=== PATIENT | male | born 1975 | race Caucasian/White ===

== ENCOUNTER 2016-10-30 19:00 | Emergency (ER) | payer OTHER ==
[2016-10-30] MEDS ORDERED: DILAUDID IV ONE ×2 (19:18→20:43)
[2016-10-30] MEDS ORDERED: NS 1,000 ML IV ONE (19:18)
[2016-10-30] MEDS ORDERED: ZOFRAN IV ONE (19:18)
--- NOTE | 2016-10-30 19:21 | PROVIDER DOCUMENTATION ---
HPI-Abdominal Pain/GI Problem - General Chief Complaint: Abdominal Pain Stated Complaint: knot on abd Time Seen by Provider: 10/30/16 19:11 Source: patient Allergies/Adverse Reactions: Patient Allergies Allergy/AdvReac Type Severity Reaction Status Date / Time No Known Allergies Allergy Verified 10/30/16 19:42 Home Medications: Alprazolam [Xanax] 0.5 mg PO BID 10/14/13 LISINOpril [Prinivil] 20 mg PO DAILY 10/14/13 Metformin [Glucophage] 1,000 mg PO BID CC 06/01/15 - History of Present Illness-ABD Nature of Presenting Problems: 41 year old M presents to the ED with a cc of LLQ ABD pain with an onset of 2 weeks ago. PT states that he also has nausea and vomiting but is unsure if it is associated with chemo. PT states that he has lymphoma. Abdominal Pain Onset Location: reports: LLQ Pain Radiation: reports: no radiation Quality of Pain: reports: aching Severity in ED: reports: mild Onset/Duration: reports: other (2 weeks) Timing: reports: still present Activities at Onset: reports: none Modifying Factors: improves with: nothing Associated Symptoms: reports: nausea, vomiting Bruising or Bleeding Gums?: No Similar Symptoms Previously?: No Recently seen or treated by another doctor?: No Review of Systems - Adult - REVIEW OF SYSTEMS - ADULT Constitutional: denies: chills, fever Eyes: reports: no symptoms reported Ears, Nose, Mouth & Throat: reports: no symptoms reported Cardiovascular: denies: chest pain, palpitations Respiratory: denies: cough, shortness of breath Gastrointestinal: reports: abdominal pain, nausea, vomiting Genitourinary: denies: dysuria, hematuria Musculoskeletal: denies: bone pain, muscle aches, muscle weakness Integumentary: reports: no symptoms reported Neurological: reports: no symptoms reported Psychiatric: reports: no symptoms reported Endocrine: reports: no symptoms reported Hematologic/Lymphatic: reports: no symptoms reported Allergic/Immunologic: reports: no symptoms reported All Other Systems: Reviewed and Negative Past History - Adult - PAST MEDICAL HISTORY-ADULT Review of Records: reports: Nursing Assessment Review, Medications Reviewed Major Childhood Illnesses: reports: denies history Cardiovascular: reports: HTN Musculoskeletal: reports: chronic pain Psychiatric: reports: depression Endocrine/Immune: reports: Diabetes, Lymphoma - PRIOR SURGERIES/PROCEDURES Surgical/Procedure History: reports: reviewed, not pertinent - PRIOR HOSPITALIZATIONS Prior Hospitalizations: reports: none - IMMUNIZATION STATUS Childhood Immunizations: See Nurse Assessment Flu Vaccine: See Nurse Assessment - FAMILY HISTORY Family History: reviewed, not pertinent - SOCIAL HISTORY Smoking: cigarettes, less than 1 pack/day Provider spent 3-5 mins advising pt. on dangers of tobacco.: Discussed manners to quit use, and f/u contacts for add'l counseling. Substance Use: marijuana Alcohol Use Frequency: occasionally Physical Exam-General - PHYSICAL EXAM-ADULT Initial Vital Signs Reviewed: Yes - CONSTITUTIONAL General Appearance: appears well, alert, no apparent distress - RESPIRATORY Respiratory: chest non-tender, lungs clear, normal breath sounds - CARDIOVASCULAR Cardiovascular: normal peripheral pulses, regular rate, rhythm, no edema - GASTROINTESTINAL (ABDOMEN) Abdominal Exam: normal bowel sounds, soft, tenderness (LLQ), mass (4x4 mass to LLQ) - SKIN Integumentary: normal color, normal turgor, warm/dry - PSYCHIATRIC Psych/Mental Status: normal mood/affect, normal thought content, normal thought process, oriented x 3 Progress - PLAN OF CARE/RESULTS Progress/Plan/Lab Results: plan of care: imaging, labs, fluids, medications, I&D Orders Category Date Time Status CT ABD/PELVIS W/ IV CONT ONLY [CT] Stat Exams 10/30/16 19:17 Taken CBC WITH ELECTRONIC DIFF [HEME] Stat Lab 10/30/16 19:05 Completed CMP [COMPREHENSIVE METABOLIC PANEL] [CHEM] Stat Lab 10/30/16 19:05 Completed WOUND CULTURE INC GRAM STAIN [RM] Routine Lab 10/30/16 21:13 Received 0.9% Sodium Chloride Inj [Ns] 1,000 ml Med 10/30/16 19:18 Discontinued IV 999 mls/hr Hydromorphone [Dilaudid] Med 10/30/16 19:18 Discontinued 1 mg IV NOW ONE Hydromorphone [Dilaudid] Med 10/30/16 20:43 Discontinued 1 mg IV NOW ONE Lidocaine 1%/Epi 1:100,000 [Xylocaine 1%/Epi 1:100,000] Med 10/30/16 20:49 Discontinued 20 ml INJ NOW ONE Ondansetron [Zofran] Med 10/30/16 19:18 Discontinued 8 mg IV NOW ONE Laboratory Tests 10/30/16 10/30/16 19:05 19:05 WBC 10.22 RBC 4.89 Hgb 15.1 Hct 40.3 L MCV 82.4 MCH 30.9 MCHC 37.5 H RDW Std Deviation 12.9 Plt Count 256 MPV 10.1 Immature Gran % (Auto) 0.9 H Neut % (Auto) 74.7 Lymph % (Auto) 10.5 L [place] % (Auto) 11.2 H Eos % (Auto) 1.8 Baso % (Auto) 0.9 H Immature Gran # (Auto) 0.09 H Neut # (Auto) 7.65 H Lymph # (Auto) 1.07 L [place] # (Auto) 1.14 H Eos # (Auto) 0.18 Baso # (Auto) 0.09 Sodium 133 L Potassium 3.7 Chloride 93 L Carbon Dioxide 24 L Anion Gap 16 BUN 24 H Creatinine 0.8 Estimated GFR/1.73 m2 > 60 BUN/Creatinine Ratio 30 Glucose 255 H Calculated Osmolality 279 Calcium 9.6 Total Bilirubin 0.41 AST 38 H ALT 136 H Alkaline Phosphatase 202 H Total Protein 6.7 Albumin 3.8 Globulin 2.9 Albumin/Globulin Ratio 1.3 Vital Signs - 24 hr 10/30/16 19:19 Pulse Rate 121 H Respiratory 20 Rate Blood Pressure 141/109 O2 Sat by Pulse 95 Oximetry Pt given results and will be d/c home w/ rx to follow up with PCP. Pt verbally understood instructions. PT remained clinically stable throughout the course of the ED stay and will return if symptoms worsen. - CT/MRI 1 CT Study: Abdomen, Pelvis Impression: Abnormal CT Results: abscess with overlying cellulitis in LLQ - CONSULTS/PCP/HOSPITALIST Notification #1 *Consult/PCP/Hospitalist*: Dr. Vasquez Time Discussed: 22:03 Procedures - INCISION & DRAINAGE Site: LLQ ABD Abscess Type: Subcutaneous Anesthetic: 1%, Lidocaine w/ Epinephrine Volume of Anesthetic (ml's): 8 Blade Size: 11 Packing placed?: Yes Sterile Dressing Applied?: Yes Drainage: Purulent, Small Amount Procedure Comment: aspirated with blood and pus mixed and then incision made Departure - Departure Time of Disposition Order: 21:21 DIAGNOSIS: Abdominal wall abscess Disposition: HOME 01 Certified Medical Emergency: Emergent Condition: Good Additional Instructions: Follow up with primary care doctor. Return to ED for any new or worsening symptoms. Establish care with a primary physician by calling the physician referral line below. ED Follow Up Instructions: You have been treated by a care provider in the Emergency Department. These instructions are being provided to you so you can have an understanding of how to care for yourself upon discharge. Upon discharge from the Emergency Department, you are responsible for making arrangements for follow-up care by a physician of your choice. Take all prescribed medications as directed. Return to the Emergency Department immediately for any new or worsening symptoms. You may call the Physician Referral phone number at [phone] to obtain a list of Physicians who are taking new patients. Prescriptions: Sulfamethoxazole/Tmp D.s. [Septra Ds] 1 each PO BID #14 tablet Referrals: None,PCP [Primary Care Provider] - Instructions: Abscess, [id number] Attestation - Scribe Verification/Attestation Scribe:: Tisha Szymanski Acting as Scribe for:: Frankie Graham Scribe documention review:: This chart was documented by a scribe and accurately reflects the service the provider performed and the decisions made by the provider. Physician Attestation - Physician Attestation I, the provider, attest to the following statement:: Frankie Graham Physician documentation Attestation:: This documentation recorded by the scribe accurately reflects the service I personally performed and the decisions made by me.
[2016-10-30 19:30] LABS: BASO% 0.9 % (0.0-0.8); EOS# 0.18 X1000 (0.0-0.7); EOS% 1.8 % (0.0-10.0); HEMATOCRIT 40.3 % (42.0-52.0); HEMOGLOBIN 15.1 g/dL (14.0-18.0); IMM GRAN# 0.09 X1000 (0.0-0.04); IMM GRAN% 0.9 % (0.0-0.5); LYMPH# 1.07 X1000 (1.2-3.4); LYMPH% 10.5 % (20.5-51.1); MANUAL DIFF NEEDED? NO; MCH 30.9 PG (27-31); MCHC 37.5 g/dL (33-37); MCV 82.4 FL (81-99); MONO# 1.14 X1000 (0.11-0.59); MONO% 11.2 % (1.7-9.3); MPV 10.1 FL (7.4-10.4); NEUT% 74.7 % (42.2-75.2); PLT 256 X1000 (130-400); RBC 4.89 XMIL (4.7-6.1)
[2016-10-30 20:09] LABS: AGAP 16; ALBUMIN 3.8 g/dL (3.5-5.0); ALKALINE PHOSPHATASE 202 U/L (32-122); BUN 24 mg/dL (8-22); CALCIUM 9.6 mg/dL (8.8-10.2); CHLORIDE 93 mmol/L (98-107); COSMO 279; GOT 38 U/L (10-34); GPT 136 U/L (10-44); POTASSIUM 3.7 mmol/L (3.5-5.1); SODIUM 133 mmol/L (136-145); TCO2 24 mmol/L (25-35); TOTAL BILIRUBIN 0.41 mg/dL (0.20-1.00); TOTAL PROTEIN 6.7 g/dL (6.3-8.3)
[2016-10-30] MEDS ORDERED: XYLOCAINE 1%/EPI 1:100,000 INJ ONE (20:49)
[2016-10-30 22:29] VITALS: BP 155/87
--- NOTE | 2016-10-31 08:51 | Diag Imaging Result Document ---
PROCEDURE NAME: CT ABD/PELVIS W/ IV CONT ONLY - 10/30/2016 CT ABDOMEN AND PELVIS WITH INTRAVENOUS CONTRAST: COMPARISON: 05/31/2016, 05/12/2016. FINDINGS: There has been development of a small, oval, rim-enhancing, slightly complicated fluid collection with overlying skin inflammation at the left lower quadrant anterior abdominal wall. This measures about 4.4 x 1.7 cm. There is mesenteric lymphadenopathy and some mesenteric edema as well as retroperitoneal adenopathy. This has slightly improved since prior. The lung bases are clear and the heart size is normal. The liver, gallbladder, spleen, pancreas, adrenals, and kidneys are normal. There is stable diverticulosis of the descending and sigmoid colon. Bony structures are intact. IMPRESSION: 1. Small fluid collection with skin inflammation at the anterior left lower quadrant body wall compatible with a subcutaneous abscess. 2. Improvement in the abdominal lymphadenopathy. 3. Stable diverticulosis coli.
== END 2016-10-30 22:31 | disposition home or self-care (01) ==
LOC: EDBD → ED 19:00
DX: L02.211 Cutaneous abscess of abdominal wall (principal); R10.32 Left lower quadrant pain; R11.2 Nausea with vomiting, unspecified; R10.814 Left lower quadrant abdominal tenderness; R19.04 Left lower quadrant abdominal swelling, mass and lump; C85.90 Non-Hodgkin lymphoma, unspecified, unspecified site; I10 Essential (primary) hypertension; G89.29 Other chronic pain; Z79.899 Other long term (current) drug therapy; E11.9 Type 2 diabetes mellitus without complications; F17.210 Nicotine dependence, cigarettes, uncomplicated; Z79.4 Long term (current) use of insulin; Z71.6 Tobacco abuse counseling
CPT/HCPCS: 74177; 80053; 85025; 87070; 96374; 96376; J1170; J2405; J7030; Q9966

== ENCOUNTER 2017-01-12 02:12 | Observation (INO) | payer OTHER ==
[2017-01-12] MEDS ORDERED: NS 1,000 ML IV ONE (02:54)
[2017-01-12] MEDS ORDERED: SODIUM CHLORIDE 0.9% INJ ONE ×2 (02:54→03:25)
[2017-01-12] MEDS ORDERED: PROTONIX IV ONE (02:54)
[2017-01-12] MEDS ORDERED: ZOFRAN IV ONE (02:54)
[2017-01-12] MEDS ORDERED: HUMULIN R IV ONE ×2 (02:56→06:02)
--- NOTE | 2017-01-12 03:03 | PROVIDER DOCUMENTATION ---
HPI-Abdominal Pain/GI Problem - General Source: patient - History of Present Illness-ABD Nature of Presenting Problems: Pt is a 41 yom who presents to ER with CC of N/V since . Pt reports that he has vomited x3 within the last 6 hours, but no diarrhea. Pt reports that he has not had a bm today, but they have been normal all week. Pt also complains of loss of appetite, has hx of diabetes. 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 Pt reports that his B/S usually runs this high "but this aint never happened before." Abdominal Pain Onset Location: reports: LLQ, epigastric Pain Radiation: reports: no radiation Quality of Pain: reports: aching, cramping Severity in ED: reports: moderate Onset/Duration: reports: 4 days ago Timing: reports: still present Associated Symptoms: reports: heartburn, loss of appetite, nausea, vomiting. denies: anxiety, arm pain, back/neck pain, chest pain, constipation, cough, diaphoresis, diarrhea, dizziness, EENT symptoms, fatigue, fever/chills, genitourinary problems, headaches, muscle aches, sinus congestion/drainage, shortness of breath, pain with inspiration, swelling/mass in abdomen, syncope, weakness, trouble walking Last BM: 24 hours ago Dark Stools Present?: reports: none noticed Rectal Bleeding: reports: none Rectal Pain: reports: none Emesis Description: reports: none <Hugo Villalobos - Last Filed: 01/12/17 02:58> <Chris Herrera - Last Filed: 01/12/17 05:40> - General Chief Complaint: Nausea/Vomiting Stated Complaint: VOMITING, ABD PAIN Time Seen by Provider: 01/12/17 02:31 Allergies/Adverse Reactions: Patient Allergies Allergy/AdvReac Type Severity Reaction Status Date / Time No Known Allergies Allergy Verified 10/30/16 19:42 Home Medications: Home Medication List Medication Instructions Recorded Confirmed Last Taken Type Alprazolam [Xanax] 0.5 mg PO BID 10/14/13 10/30/16 05/12/16 History LISINOpril [Prinivil] 20 mg PO DAILY 10/14/13 10/30/16 10/30/16 History Metformin [Glucophage] 1,000 mg PO BID CC 06/01/15 10/30/16 10/30/16 History Insulin Lispro [Humalog] 30 unit SQ TID #1 cartridge 02/21/16 10/30/16 05/12/16 Rx ATORVAstatin [Lipitor] 40 mg PO QHS #90 tablet 05/16/16 10/30/16 10/30/16 Rx Hydrocodone/Acetaminophen [[place] 1 each PO TID PRN #15 tablet 05/16/16 10/30/16 Unknown Rx 7.5-325 Tablet] Insulin Glargine [Lantus] 30 unit SUBQ BID #1 insuln.pen 05/16/16 10/30/16 Unknown Rx Metoprolol [Lopressor] 12.5 mg PO BID #30 tablet 05/16/16 10/30/16 10/30/16 Rx Pantoprazole [Protonix] 40 mg PO DAILY@0700 #30 tablet 05/16/16 10/30/16 Rx Sucralfate [Carafate Liquid] 1 gm PO Q6H #120 udc 05/16/16 10/30/16 10/30/16 Rx Diphenoxylate/Atropine [Lomotil] 1 each PO 4XDAY PRN PRN #20 tablet 08/13/1602/10 Unknown Rx Sulfamethoxazole/Tmp D.s. [Septra 1 each PO BID #14 tablet 10/30/16 Unknown Rx Ds] Review of Systems - Adult - REVIEW OF SYSTEMS - ADULT Constitutional: denies: chills, fever, fatique, night sweats, weight gain, weight loss Eyes: reports: no symptoms reported Ears, Nose, Mouth & Throat: reports: no symptoms reported Cardiovascular: reports: no symptoms reported Respiratory: reports: no symptoms reported Gastrointestinal: reports: abdominal pain, frequent heartburn, nausea, poor appetite, vomiting. denies: hematemesis, constipation, diarrhea, difficulty swallowing, rectal bleeding Genitourinary: reports: no symptoms reported Musculoskeletal: reports: no symptoms reported Integumentary: reports: no symptoms reported Neurological: reports: no symptoms reported Psychiatric: reports: no symptoms reported Endocrine: reports: no symptoms reported Hematologic/Lymphatic: reports: no symptoms reported Allergic/Immunologic: reports: no symptoms reported All Other Systems: Reviewed and Negative <Hugo Villalobos - Last Filed: 01/12/17 02:58> Past History - Adult - PAST MEDICAL HISTORY-ADULT Review of Records: reports: Nursing Assessment Review, Medications Reviewed Cardiovascular: reports: HTN Musculoskeletal: reports: chronic pain Psychiatric: reports: depression Endocrine/Immune: reports: Diabetes, Lymphoma - PRIOR SURGERIES/PROCEDURES Surgical/Procedure History: reports: reviewed, not pertinent - IMMUNIZATION STATUS Childhood Immunizations: See Nurse Assessment Flu Vaccine: See Nurse Assessment <Hugo Villalobos - Last Filed: 01/12/17 02:58> Physical Exam-General - PHYSICAL EXAM-ADULT Initial Vital Signs Reviewed: Yes - CONSTITUTIONAL General Appearance: appears well, alert, moderate distress, obese, anxious, other (agitated). negative: no apparent distress, mild distress, severe distress, cachetic, thin, lethargic, slow to respond, obtunded, combative - HEAD, EARS, NOSE, MOUTH & THROAT HENMT: normocephalic/atraumatic, moist mucous membranes, normal ENT inspection, TMs normal, pharynx normal. negative: pharyngeal erythema, tonsillar exudate - NECK Neck: non-tender, full range of motion, supple - RESPIRATORY Respiratory: chest non-tender, lungs clear, normal breath sounds. negative: respiratory distress, decreased breath sounds, accessory muscle use, wheezing - CARDIOVASCULAR Cardiovascular: normal peripheral pulses, tachycardia. negative: regular rate, rhythm, bradycardia, irregularly irregular - GASTROINTESTINAL (ABDOMEN) Abdominal Exam: normal bowel sounds, soft, tenderness (LLQ, epigastric). negative: non tender, distended - SKIN Integumentary: normal color, normal turgor, warm/dry - NEUROLOGIC Neurologic: grossly normal, no motor/sensory deficits - PSYCHIATRIC Psych/Mental Status: normal thought content, normal thought process, oriented x 3, anxious, disheveled. negative: normal mood/affect <Hugo Villalobos - Last Filed: 01/12/17 02:58> Progress - REASSESSMENT Reassessment #1 Time Reassessed: 05:15 Status: unchanged - CONSULTS/PCP/HOSPITALIST Notification #1 *Consult/PCP/Hospitalist*: DR DESAI AWARE OF LABS /EKG - CHANGE OF SHIFT REPORT (ED Provider) Report Given and Care Transferred to:: [facility] Time of Transfer: 06:00 Items Pending: CT/MRI Results, Other (RE-EVALUTION //CALL HOSPITALIST W/CT OFFICIAL REPORT) <Chris Herrera - Last Filed: 01/12/17 05:40> Departure <Hugo Villalobos - Last Filed: 01/12/17 02:58> - Departure Time of Disposition Order: 05:38 Certified Medical Emergency: Emergent <Chris Herrera - Last Filed: 01/12/17 05:40> - Departure DIAGNOSIS: Uncontrolled diabetes mellitus, Vomiting, Gastroparesis, Poor compliance with medication, GERD (gastroesophageal reflux disease) Disposition: ADMITTED INPATIENT 09 Condition: Stable Attestation - Scribe Verification/Attestation Scribe:: Hugo Villalobos Acting as Scribe for:: Chris Herrera Scribe documention review:: This chart was documented by a scribe and accurately reflects the service the provider performed and the decisions made by the provider. <Hugo Villalobos - Last Filed: 01/12/17 02:58> Physician Attestation
[2017-01-12] MEDS ORDERED: PHENERGAN IV ONE (03:25)
[2017-01-12 03:46] LABS: ALLEN TEST YES; BE -1.6 mmoll (-3.0-3.0); BLOOD TYPE ARTERIAL; DRAW SITE R BRACHIAL; METHB 1.3 % (0.0-1.5); O2(CT) 21.4 mL/dL (15.0-23.0); PCO2(98.6) 38 mmHg (35-45); PO2(98.6) 72 mmHg (60-100); SAMPLE BLOOD; SAO2 94.5 % (95.0-100.0); THB 16.3 g/dL (11.5-17.4); pH(98.6) 7.39 (7.35-7.45)
[2017-01-12 03:47] LABS: MODALITY ROOM AIR
[2017-01-12 04:51] LABS: ACETONE SERUM SMALL (NEGATIVE)
[2017-01-12 05:09] LABS: AGAP 26; ALBUMIN 4.2 g/dL (3.5-5.0); ALKALINE PHOSPHATASE 172 U/L (32-122); AMYLASE 59 U/L (20-200); CHLORIDE 82 mmol/L (98-107); COSMO 294; GOT 19 U/L (10-34); GPT 57 U/L (10-44); LIPASE 80 U/L (13-60); POTASSIUM 5.3 mmol/L (3.5-5.1); SODIUM 127 mmol/L (136-145); TCO2 19 mmol/L (25-35); TOTAL PROTEIN 7.1 g/dL (6.3-8.3)
[2017-01-12 05:12] LABS: BUN 32 mg/dL (8-22); CALCIUM 9.4 mg/dL (8.8-10.2); TOTAL BILIRUBIN 1.51 mg/dL (0.20-1.00)
[2017-01-12 05:24] LABS: URINE CULTURE NEEDED? NO; URINE MICRO REVIEW NEEDED? NO; URINE SOURCE CLEAN CATCH
[2017-01-12 05:32] LABS: UR EPITHELIAL CELLS <10 /HPF (<10); URINE BACTERIA NEGATIVE /HPF; URINE RBC <10 /HPF (<10); URINE WBC <10 /HPF (<10)
[2017-01-12 05:38] LABS: BILIRUBIN URINE NEGATIVE (NEGATIVE); BLOOD URINE TRACE (NEGATIVE); COLOR STRAW; GLUCOSE URINE >1000 mg/dL (NEGATIVE); LEUKOCYTES URINE NEGATIVE (NEGATIVE); NITRITE URINE NEGATIVE (NEGATIVE); PROTEIN URINE TRACE mg/dL (NEGATIVE); SP GRAVITY URINE 1.026; TURBIDITY URINE CLEAR (CLEAR); UROBILINOGEN URINE NORMAL (NORMAL)
[2017-01-12 05:41] LABS: BASO% 0.6 % (0.0-0.8); EOS# 0.07 X1000 (0.0-0.7); EOS% 0.9 % (0.0-10.0); HEMATOCRIT 43.7 % (42.0-52.0); HEMOGLOBIN 16.3 g/dL (14.0-18.0); IMM GRAN# 0.04 X1000 (0.0-0.04); IMM GRAN% 0.5 % (0.0-0.5); LYMPH# 1.02 X1000 (1.2-3.4); MANUAL DIFF NEEDED? NO; MCH 30.7 PG (27-31); MCHC 37.3 g/dL (33-37); MCV 82.3 FL (81-99); MONO# 0.93 X1000 (0.11-0.59); MONO% 11.8 % (1.7-9.3); NEUT% 73.2 % (42.2-75.2); PLT 229 X1000 (130-400); RBC 5.31 XMIL (4.7-6.1)
--- NOTE | 2017-01-12 05:58 | EKG Report ---
Test Performed on : 01/12/2017 04:31:41 AM Test Reason : pain Blood Pressure : / mmHG Vent. Rate : 128 BPM Atrial Rate : 128 BPM P-R Int : 130 ms QRS Dur : 090 ms QT Int : 368 ms P-R-T Axes : 053 029 059 degrees QTc Int : 537 ms Sinus tachycardia. Cannot rule out Inferior infarct (cited on or before 12-MAY-2016) Abnormal ECG When compared with ECG of 12-MAY-2016 21:40, Inverted T waves have replaced nonspecific T wave abnormality in Inferior leads Unconfirmed Result
[2017-01-12] MEDS ORDERED: TYLENOL PO PRN (08:17)
--- NOTE | 2017-01-12 08:53 | HISTORY AND PHYSICAL ---
HISTORY OF PRESENT ILLNESS: This is a 41-year-old who presented to the emergency room. About 6 days ago, started having some nausea. He said on and Friday, he felt a little better. Then Friday, it progressed and this is Friday. When he came to the emergency room, he just aches all over. Hurts all over. The only place it does not hurt is his head. He has tendonitis in his elbow. Persistent nausea and vomiting. Not been able to get any food or liquid down. He quit taking the insulin several days ago. He said he thought that was what was making him feel bad. He has a history of uncontrolled diabetes. He is taking insulin and he takes quite a bit depending on if his sugars in his words are above 500 or not. He has hypertension. Apparently, he had been treated last year for lymphoma per Dr. Mckinney, had treatment from May to September by his report. He has spina bifida. He has lower back arthritis and cervical arthritis. He has not had any major surgeries. He has hyperlipidemia and hypertension. No history of heart disease that he knows of. In the emergency room, the blood sugar was 669. His fingerstick was 430. His serum sugar was 669. He has presented with this type of thing before, worsening abdominal pain, nausea, and vomiting, elevated sugar. ALLERGIES: No known drug allergies. MEDICATIONS: His list of medications is extensive. He is on metformin 1000 mg I believe twice a day. He is on Protonix 40 mg a day, Coumadin 1 mg at bedtime, Amaryl 4 mg (I am guessing that is once a day), Dexilant 30 mg daily, Zofran 4 mg a day as needed, lisinopril 20 mg a day, Lantus pen - I am not sure how many units, Humalog p.r.n. - I am not sure how many units. He takes Xanax 0.5 mg. He takes Asher 10 mg as needed for pain. He said he is allergic to Benadryl and he takes low- dose aspirin. FAMILY HISTORY: Notable for diabetes and coronary artery disease. Father had bypass surgery. PAST SURGICAL HISTORY: Other than I and D of the groin, he has not had any surgery. SOCIAL HISTORY: He quit smoking 3 months ago. Drinks about 1-2 beers a week but not much. He does use marijuana on occasion. He is . Has 1 child, 3-1/2 years old. REVIEW OF SYSTEMS: Constitutional: He feels like he has lost some weight. General: He is disabled. HEENT: Unremarkable. Respiratory: No increased work of breathing or dyspnea. Cardiovascular: No chest pain or tachy palpitation. GI/: Just the nausea that presented. He is not having trouble voiding his urine. Extremities/Musculoskeletal/Neurologic: Just general aching and hurting. Tendonitis in his left elbow hurt, chronic arthritis in his back and neck. His hands hurt him. His knees hurt him. PHYSICAL EXAMINATION: VITAL SIGNS: Temperature 98 degrees, pulse 125, respirations 19, blood pressure 131/87. HEENT: Pupils are equal and round. LUNGS: Clear in all lung wing. CARDIOVASCULAR EXAMINATION: Regular rhythm and rate without murmur or S3. ABDOMEN: Soft. SKIN: Warm and dry. Weight 260 pounds, height 5 feet 11 inches. DIAGNOSTIC DATA: Fingerstick was 430 but his blood sugar on presentation was 667. White blood cell count 7860, hematocrit 43, platelet count 229,000. Sodium 127, potassium 5.3, chloride 82, bicarb was 19, BUN 32, creatinine 0.9, blood sugar 669, calculated osmolality 294, calcium 9.4. Liver transaminases unremarkable. Alkaline phosphatase 172, amylase 59, lipase 80. Urinalysis, 80 ketones. Glucose greater than 1000. Blood gases, pH was 7.39, pCO2 38, PO2 72, O2 saturation was 94%, FiO2 21. LIST OF MEDICINES: Lipitor 40 mg at bedtime, Xanax 0.5 mg b.i.d., hydrocodone 7.5 (I think he is on 10s as needed for pain), Lantus glargine 30 units b.i.d., lisinopril 20 mg daily, metformin 1000 mg b.i.d., Lopressor 12.5 mg b.i.d., Protonix 40 mg p.o. daily, Carafate 1 g q.6 hours. He has recently been on Septra 1 b.i.d. for 14 days. ASSESSMENT AND PLAN: 1. Hyperosmolar hyperglycemia which is fairly mild. I am going to give him some fluids. and get his sugars down. I just think he is aching all over. Suspect he may have gastroparesis so we will add a little bit of Reglan to see if it will help. We will put him on full liquids for now and see if we can advance. 2. Chronic pain from his spina bifida, his lower back and cervical arthralgia, and general osteoarthritis. I think this is augmented by his hyperosmolar hyperglycemic state right now. We will continue his Asher as needed for pain. 3. Recent lymphoma. I will see if I can find some details on that. Dr. Mckinney had seen him in April 2016. This time, he had lymphadenopathy, extensive metastatic and intraperitoneal lymphadenopathy. At that time, he had acute pancreatitis and cirrhosis as well. Workup was pursued. Bone marrow biopsy done at that time. On discharge summary, he was also diagnosed with Jaylin esophagitis, gastritis, duodenitis, mesenteric lymphadenopathy. They are still working up. Abdominal and pelvic CT at that time. There was a lot of intraabdominal adenopathy and stable diverticulosis at that time. We will have Dr. Mckinney evaluate as well on Friday as far where his status is with lymphoma. I do not see any obvious source of bacterial infection at this point.
[2017-01-12] MEDS: SODIUM CHLORIDE 0.9% INJ SCH ×2 (09:58→23:21)
[2017-01-12] MEDS: PROTONIX IV SCH ×2 (09:58→23:21)
[2017-01-12] MEDS: NS + KCL 20 MEQ 1,000 ML IV SCH ×2 (10:06→17:04)
[2017-01-12] MEDS: PRINIVIL PO SCH ×2 (10:07→23:21)
[2017-01-12] MEDS: NORCO-7.5 PO PRN ×2 (10:08→13:41)
[2017-01-12] MEDS: HUMULIN 70/30 SUBQ SCH ×2 (10:14→23:22)
[2017-01-12] MEDS ORDERED: HUMULIN R SUBQ SCH (11:00)
--- NOTE | 2017-01-12 12:39 | Diag Imaging Result Document ---
PROCEDURE NAME: CT ABD/PELVIS W/ IV CONT ONLY - 01/12/2017 CT ABDOMEN AND PELVIS WITH IV CONTRAST: COMPARISON: 10/30/2016. FINDINGS: There is diffuse hepatic steatosis. Shotty lymphadenopathy is seen at the root of the mesentery with surrounding induration. This is very similar to the previous study. There is a prominent retroperitoneal lymph node on the left on image 77 of series 3 measuring up to 2.3 cm. It is stable to slightly smaller than the previous study. There is mild colonic diverticulosis. There is no evidence of diverticulitis. The urinary bladder wall is somewhat thickened but this may be due to incomplete distention. Correlate clinically to completely exclude cystitis. The remainder of the solid viscera of the abdomen and pelvis and the remainder of the GI tract is essentially unremarkable. IMPRESSION: 1. Shotty lymphadenopathy at the root of the mesentery with surrounding haziness that is essentially stable and an approximally stable prominent lymph node in the retroperitoneum on the left. 2. Mildly thickened urinary bladder wall that may be due to incomplete distention. Correlate clinically to exclude cystitis. 3. Other incidental/nonacute findings detailed above that are stable as compared to the previous study. [facility]
--- NOTE | 2017-01-12 14:14 | Diag Imaging Result Document ---
PROCEDURE NAME: CHEST-2 VIEWS - 01/12/2017 AP AND LATERAL RADIOGRAPH OF THE CHEST: COMPARISON: 08/13/2016. FINDINGS: A left chest port is in place. The tip projects over the lower SVC in the expected position. The lungs are grossly clear. There is no evidence of pneumothorax or pleural fluid collection. Cardiac silhouette and central vasculature are grossly unremarkable. IMPRESSION: No evidence of acute pathology.
[2017-01-12] MEDS ORDERED: MYCOSTATIN SUSP PO PRN ×2 (16:51→17:06)
[2017-01-12] MEDS ORDERED: MYCOSTATIN SUSP PO SCH (17:00)
[2017-01-12] MEDS: XANAX PO PRN (17:56)
[2017-01-12] MEDS: MYCOSTATIN SUSP PO SCH (18:00)
[2017-01-12] MEDS ORDERED: HUMALOG SUBQ ONE (18:16)
[2017-01-12] MEDS: NORCO-10 PO PRN (18:26)
[2017-01-12] MEDS ORDERED: HUMALOG SUBQ SCH (21:00)
[2017-01-12] MEDS: HUMALOG SUBQ SCH (23:23)
[2017-01-13] MEDS: NORCO-10 PO PRN ×4 (01:04→19:59)
[2017-01-13] MEDS: NS + KCL 20 MEQ 1,000 ML IV SCH ×3 (01:05→14:12)
[2017-01-13] MEDS: XANAX PO PRN ×2 (02:32→19:58)
[2017-01-13 06:49] LABS: MANUAL DIFF NEEDED? NO
[2017-01-13] MEDS: HUMALOG SUBQ SCH ×3 (06:52→16:59)
[2017-01-13] MEDS: MYCOSTATIN SUSP PO SCH ×3 (06:53→16:42)
[2017-01-13 07:10] LABS: BASO% 1.2 % (0.0-0.8); EOS# 0.23 X1000 (0.0-0.7); EOS% 7.1 % (0.0-10.0); HEMATOCRIT 37.6 % (42.0-52.0); HEMOGLOBIN 13.6 g/dL (14.0-18.0); LYMPH# 0.58 X1000 (1.2-3.4); LYMPH% 17.9 % (20.5-51.1); MCH 30.4 PG (27-31); MCHC 36.2 g/dL (33-37); MCV 84.1 FL (81-99); MONO# 0.36 X1000 (0.11-0.59); MONO% 11.1 % (1.7-9.3); MPV 9.7 FL (7.4-10.4); NEUT% 62.7 % (42.2-75.2); PLT 178 X1000 (130-400); RBC 4.47 XMIL (4.7-6.1)
[2017-01-13 07:58] LABS: AGAP 12; ALBUMIN 3.1 g/dL (3.5-5.0); ALKALINE PHOSPHATASE 98 U/L (32-122); BUN 14 mg/dL (8-22); CHLORIDE 100 mmol/L (98-107); COSMO 284; GOT 79 U/L (10-34); GPT 87 U/L (10-44); MAGNESIUM 2.1 mg/dL (1.5-2.7); POTASSIUM 4.3 mmol/L (3.5-5.1); SODIUM 136 mmol/L (136-145); TCO2 24 mmol/L (25-35); TOTAL BILIRUBIN 0.84 mg/dL (0.20-1.00); TOTAL PROTEIN 5.4 g/dL (6.3-8.3)
[2017-01-13 07:59] LABS: CALCIUM 7.9 mg/dL (8.8-10.2)
[2017-01-13] MEDS: HUMULIN 70/30 SUBQ SCH ×2 (08:46→19:53)
[2017-01-13] MEDS: PROTONIX IV SCH ×2 (08:46→19:53)
[2017-01-13] MEDS: SODIUM CHLORIDE 0.9% INJ SCH (08:46)
[2017-01-13] MEDS: PRINIVIL PO SCH ×2 (08:46→19:53)
[2017-01-13] MEDS: ZOFRAN IV PRN ×2 (12:41→19:53)
[2017-01-13] MEDS ORDERED: HEPARIN ONE (18:29)
--- NOTE | 2017-01-13 20:54 | PROGRESS NOTE ---
DATE: 01/13/2017 SUBJECTIVE: Today Mr. Bautista refers to be doing fine. He still continues to have significant abdominal discomfort. OBJECTIVE: Vital signs: Blood pressure is 173/97, pulse of 95, respirations 20, temperature 98.1 degrees. General: Mr. Bautista is a 41-year-old, male. He is in bed. He does not seem to be in any remarkable distress. HEENT: Mucosa is pink and moist. Anicteric and acyanotic. Chest: Good air entry bilaterally. No crepitations. No rhonchi. Cardiovascular: Regular rate and rhythm. There are no murmurs, no rubs, no gallops. Abdomen: Distended but nontender. Bowel sounds are present. He seems to be constipated. Extremities: No pedal edema. There is a Port-A- Cath on the left upper chest wall. Central Nervous System: Patient is alert and oriented. LABORATORY DATA: WBC is 3.24, hemoglobin is 13.6, platelet count of 178. Chemistry is reviewed and completely unremarkable except for glucose of 298. ASSESSMENT: 1. Severe uncontrolled diabetes mellitus on presentation (questionable diabetic ketoacidosis). This is resolved. 2. Nausea and vomiting likely secondary to #1. 3. Uncontrolled hypertension. 4. Obesity. 5. Constipation. 6. History of lymphoma. Patient is currently under therapy with Dr. Mckinney. 7. Mildly elevated lipase is not really at the level to say patient has acute pancreatitis. PLAN: Patient seems to be doing relatively fine. We are going to advance his diet to GI soft diet. If he is able to tolerate this hopefully by tomorrow, we should be able to discharge the patient if it is okay with our Hem-Onc colleagues. Patient will follow up with Dr. Mckinney as usual.
[2017-01-14] MEDS: HUMULIN 70/30 SUBQ SCH (00:45)
[2017-01-14] MEDS: NORCO-10 PO PRN ×2 (01:29→09:01)
[2017-01-14] MEDS: ZOFRAN IV PRN ×3 (01:33→11:29)
[2017-01-14] MEDS: XANAX PO PRN ×2 (03:27→11:29)
[2017-01-14] MEDS: PROTONIX IV SCH ×2 (05:50→08:37)
[2017-01-14] MEDS: PRINIVIL PO SCH ×2 (05:51→08:36)
[2017-01-14] MEDS: SODIUM CHLORIDE 0.9% INJ SCH ×2 (05:51→08:37)
[2017-01-14] MEDS: HUMALOG SUBQ SCH ×3 (06:06→11:25)
[2017-01-14 06:56] LABS: HEMOGLOBIN A1C 12.7 % (4.8-6.0)
[2017-01-14 08:05] VITALS: BP 148/96
[2017-01-14] MEDS ORDERED: HUMULIN 70/30 SUBQ SCH (08:10)
[2017-01-14] MEDS: MYCOSTATIN SUSP PO SCH ×2 (08:36→11:25)
[2017-01-14] MEDS ORDERED: HEPARIN ONE (13:12)
--- NOTE | 2017-01-14 18:16 | CONSULTATION ---
DATE OF CONSULTATION: 01/14/2017 ADMITTING PHYSICIAN: Brian Maurer MD REQUESTING PHYSICIAN: Brian Maurer MD We appreciate this consult. CHIEF COMPLAINT: Pancreatitis. HISTORY OF PRESENT ILLNESS: Mr. Bautista is a pleasant 41-year-old male who came in to [facility] Emergency Department complaining of nausea with onset 6 days prior. He reported that he has had persistent nausea and vomiting and has not been able to keep any food or fluids down. The patient also reports that he quit taking his insulin several days ago as it was making him feel worse. The patient does have a history of uncontrolled diabetes. The patient is currently being treated for stage IV follicular lymphoma and is currently on Rituxan maintenance with Dr. Mckinney. Additionally, the patient reports that he has spina bifida and has had severe pain secondary to this. We are consulted as the patient does have a history of stage IV follicular lymphoma for followup in hospital. PAST MEDICAL HISTORY: 1. Diabetes mellitus. 2. Pancreatitis. 3. Stage IV follicular lymphoma. PAST SURGICAL HISTORY: Incision and drainage of groin. SOCIAL HISTORY: The patient quit smoking 3 months ago. He drinks approximately 1 to 2 beers a week and reports that he uses marijuana occasionally. He denies any other illicit drug use. FAMILY HISTORY: Significant for diabetes mellitus, coronary artery disease, and negative for any hematologic or oncologic problems. MEDICATIONS ON ADMISSION: 1. Metformin 1000 mg. 2. Protonix 40 mg. 3. Coumadin 1 mg daily. 4. Amaryl 4 mg. 5. Dexilant 30 mg. 6. Zofran 4 mg. 7. Lisinopril 20 mg. 8. Lantus insulin. 9. Humalog insulin. 10. Xanax 0.5 mg. 11. [place] 10 mg. ALLERGIES: Benadryl. REVIEW OF SYSTEMS: A 14 point review of systems was obtained and is negative except as mentioned in HPI. PHYSICAL EXAMINATION: Mr. Bautista is a 41-year-old male lying supine in bed, complaining of severe pain and in no obvious distress.Vital Signs: Temperature 97.6, blood pressure 148/96, heart rate 102, respirations 20, O2 saturation 97% on room air. HEENT: Normocephalic, atraumatic. Mucous membranes are pink and moist. Sclerae is anicteric. Extraocular movements intact. Neck: Supple. Lungs: Clear to auscultation bilaterally. Chest expansion is equal bilaterally. CARDIOVASCULAR: S1, S2 is heard without murmur rub or gallop. Abdomen: Soft, distended. Tender in the epigastric region. Bowel sounds positive all quadrants. No rebound or guarding noted. Extremities: Without clubbing, cyanosis, or edema. Dermatologic: No rashes, bruises or lesions. Neurologic: The patient is awake, alert, and oriented x3. He has no focal motor deficit at this time. LABORATORY DATA: Hemoglobin 13.6, hematocrit 37.6, white blood cell count 3.24, platelets 178,000. ANC is 2.03 on January 13, sodium 136, potassium 4.3, chloride 100, CO2 is 24, BUN 14, creatinine 0.8, glucose is 298. IMAGING STUDIES: CT of the abdomen and pelvis reveals shotty lymphadenopathy in the root of the mesentery with retroperitoneal stable prominent node and mildly thick bladder. No findings in pancreas. ASSESSMENT AND PLAN: 1. Stage IV follicular lymphoma, currently on Rituxan maintenance every 8 weeks. Stable at this time. We will follow along. 2. Hyperosmolar hyperglycemic state, currently with a blood sugar of 298 on IV fluid hydration and sliding scale insulin. 3. Chronic pain related to spina bifida. We agree with pain medications as ordered. 4. Pancreatitis. We agree with IV fluid hydration and pain control as ordered. 5. We will follow along with you and make further recommendations pending outcomes. Dictated by FAN Goode for Juan Mckinney MD
--- NOTE | 2017-01-15 06:24 | DISCHARGE SUMMARY ---
ADMISSION DATE: 01/12/2017 DISCHARGE DATE: 01/14/2017 CONSULTATIONS: None pertinent. PROCEDURES: 1. Abdominal and pelvis CT showed shotty lymphadenopathy at the root of the mesentery with surrounding haziness that is essentially stable, and a proximally stable prominent lymph node in the retroperitoneum. On the left, mild thickening urinary bladder wall that may be due to incomplete distention. 2. Chest x-ray- no evidence of acute pathology. DISCHARGE DIAGNOSIS: 1. Severe uncontrolled diabetes mellitus on presentation, questionable for diabetic ketoacidosis, resolved. 2. Nausea and vomiting secondary to #1, resolved. 3. Uncontrolled hypertension. 4. Obesity. Patient educated on diet and exercise. 5. Constipation resolving. 6. History of lymphoma. The patient currently is currently under therapy with Dr. Mckinney. 7. Mildly elevated lipase, but not at the level to say that the patient had acute pancreatitis. HOSPITAL COURSE: Mr. Bautista is a 40-year-old male with a past medical history of lymphoma currently under treatment of Dr. Mckinney with diabetes mellitus, coronary artery disease, hypertension, spina bifida, arthritis, back arthritis and cervical arthritis, hyperlipidemia. The patient had reported 6 days prior to his admission to the ED with nausea. He said on the previous and Friday he felt a little bit better, then on Friday it progressed and worsened. He came into the ED on Friday with complaints of aches all over with persistent nausea and vomiting. He has not been able to keep any food or liquids down. He quit taking his insulin several days ago. He thought that is what was making him feel bad. In the emergency room the patient was found have a blood sugar of 669 and fingerstick was 430. The patient was essentially admitted for hyperosmolar hyperglycemia which was fairly mild. He was started on IV fluids as well as insulin. He was continued on his home [place], there no obvious signs of infection. After overnight fluids and treatment of the patient's blood glucoses, he reported to be doing fine with just a little bit of abdominal discomfort. He was continued on his Reglan. His diet was advanced to GI soft. He has tolerated his diet well. Dr. Leyva has discussed the case with his regular oncologist, Dr. Mckinney. They feel that he is appropriate for discharge home today. He will need to follow up with his primary care physician, Dr. An Valderrama, as well as Dr. Mckinney. VITAL SIGNS AT TIME OF DISCHARGE: Temperature is 97.6 degrees, heart rate 102, respirations 20, blood pressure 148/96, O2 is 97% on room air. DISCHARGE DIET: GI soft, advance as tolerated. DISCHARGE MEDICATIONS: 1. Xanax 0.5 mg p.o. t.i.d. p.r.n. 2. Prinivil 20 mg p.o. daily. 3. Glucophage 1000 mg p.o. b.i.d. 4. [place] 10/325, 1 tab p.o. 4 times a day p.r.n. 5. Zofran 4 mg p.o. q.6 hours p.r.n. 6. Aspirin 81 mg p.o. daily. 7. 400 units p.o. as directed. 8. Dexilant 30 mg p.o. daily. 9. Humalog 30 units subcutaneously t.i.d. 10. Carafate liquid 1 g p.o. q.6 hours. 11. Protonix 40 mg p.o. daily. 12. Lantus 35 units subcutaneously b.i.d. FOLLOW UP: Patient is being discharged home. He will follow up with Dr. An Valderrama, as well as Dr. Juan Mckinney. Patient can return to the ED for any worsening of symptoms. DISCHARGE TIME: 30 minutes. Dictated by FAN [place] [employer] for Sidney Leyva MD
== END 2017-01-14 13:28 | disposition home or self-care (01) ==
LOC: ED 02:12 → EDIPHOLD 08:12 → INTOOBSV 08:12 → 3N 11:12
PROVIDERS: ATTEND Internal Medicine
DX: E11.00 Type 2 diabetes mellitus with hyperosmolarity without nonketotic hyperglycemic-hyperosmolar coma (NKHHC) (principal); E11.65 Type 2 diabetes mellitus with hyperglycemia; C82.90 Follicular lymphoma, unspecified, unspecified site; I10 Essential (primary) hypertension; G89.29 Other chronic pain; E78.5 Hyperlipidemia, unspecified; Q05.9 Spina bifida, unspecified; Z91.14 Patient's other noncompliance with medication regimen; T38.3X6A Underdosing of insulin and oral hypoglycemic [antidiabetic] drugs, initial encounter; Z68.35 Body mass index [BMI] 35.0-35.9, adult; Z91.128 Patient's intentional underdosing of medication regimen for other reason; R74.8 Abnormal levels of other serum enzymes; E66.9 Obesity, unspecified; K59.00 Constipation, unspecified; I25.10 Atherosclerotic heart disease of native coronary artery without angina pectoris; M77.9 Enthesopathy, unspecified; R59.0 Localized enlarged lymph nodes; M19.90 Unspecified osteoarthritis, unspecified site; M46.92 Unspecified inflammatory spondylopathy, cervical region; M46.96 Unspecified inflammatory spondylopathy, lumbar region; R10.32 Left lower quadrant pain; F32.9 Major depressive disorder, single episode, unspecified; R10.13 Epigastric pain; R11.2 Nausea with vomiting, unspecified; R12 Heartburn; Z87.891 Personal history of nicotine dependence; Z79.899 Other long term (current) drug therapy; Z79.4 Long term (current) use of insulin; Z79.84 Long term (current) use of oral hypoglycemic drugs; Z79.82 Long term (current) use of aspirin; Z83.3 Family history of diabetes mellitus; Z82.49 Family history of ischemic heart disease and other diseases of the circulatory system
CPT/HCPCS: 36415; 71020; 74177; 80053; 81001; 82009; 82150; 82805; 82948; 83036; 83690; 83735; 84443; 84484; 85025; 93005; 96365; 96366; 96375; 96376; C9113; J1815; J2405; J2550; J3480; J7030; Q9967; S0164